=== PATIENT | female | born 1945 | race Caucasian/White ===

== ENCOUNTER → 2021-06-02 | Outpatient (CLI) | payer MEDICARE, OTHER ==
[~2021-06-02] MED LIST: CELEBREX200 MG PO; CO Q-10200 MG PO; EVISTA 60 MG TA60 MG PO; HARD NAILS2500 MCG PO; LIORESAL TAB 1010 MG PO; LUMIGAN 0.01%2.5 ML OP; NEURONTIN 300300 MG PO; OSTEO BI-FLEX1 EAC1 PO; TRAMADOL HCL50 MG PO; VITAMIN B-121000 MCG PO; VITAMIN D250000 UNIT PO; WOMEN'S DAILY1 EAC1 PO; ZETIA10 MG PO
== END ==
LOC: KOH-I 10:02
DX: E04.1 Nontoxic single thyroid nodule (principal)
CPT/HCPCS: 76536

== ENCOUNTER → 2022-03-09 | Outpatient (CLI) | payer MEDICARE, OTHER ==
[~2022-03-09] VITALS: Ht 162.6 cm; Wt 69.4 kg
== END ==
LOC: OPSV 12:28
DX: M81.0 Age-related osteoporosis without current pathological fracture (principal)
CPT/HCPCS: 96365; J3489